=== PATIENT | male | born 1970 | race Caucasian/White ===

== ENCOUNTER 2016-12-14 19:37 | Emergency (ER) | payer MEDICAID ==
--- NOTE | 2016-12-14 19:50 | EDM.PDOC ---
ED HPI GENERAL MEDICAL PROBLEM - General Chief Complaint: General Stated Complaint: nasal swelling; nasal pain Time Seen by Provider: 12/14/16 19:39 Source of Information: Reports: Patient, Family, RN, RN Notes Reviewed History Limitations: Reports: No Limitations - History of Present Illness INITIAL COMMENTS - FREE TEXT/NARRATIVE: Patient presents the emergency room at [facility] on the advice of the one call nurse from [facility] in [place]. According to the patient's , the patient underwent a cyst excision last . The patient states that he has noticed over the past day or so increased swelling around the incision site. The patient states the swelling is very tender to palpation. The patient complains of a headache. The patient states he's had some nasal drainage. He is not sure what the nasal drainage looks like. The patient's states that the cyst extended up into the left nasal cavity and into the sinus area, and extending up into the ethmoid sinuses. [facility], the patient had a 1 cm incision placed along the left lateral nasal fold. The cyst was excised without any complication. The patient had sutures placed and was discharged home the same day. The patient was not discharged home on any antibiotics. The patient denies any fevers or chills. The patient denies any visual field disturbances. Further review of the surgeon's notes and H&P the cyst appeared to be localized to the left lateral nasal fold only without any migration of the cyst. Frontal Headache Pain Score (Numeric/FACES): 8 - Related Data Allergies Allergy/AdvReac Type Severity Reaction Status Date / Time Bleach (Sodium Hypochlorite) Allergy Rash Verified 12/14/16 19:56 codeine Allergy Headache Verified 12/14/16 19:56 Penicillins Allergy Rash Verified 03/03/15 09:35 Home Meds: Home Meds Cyclobenzaprine [Flexeril] 10 mg PO TID PRN 07/10/14 [History] Venlafaxine HCl [Venlafaxine ER] 150 mg PO DAILY 07/10/14 [History] Acetaminophen [Tylenol Extra Strength] 1,000 mg Q6H PRN 12/14/16 [History] Clindamycin HCl 1 tab PO TID 10 Days #30 capsule 12/14/16 [Rx] Gabapentin [Neurontin] 600 mg TID 12/14/16 [History] SUMAtriptan [Imitrex] 25 mg ASDIRECTED PRN 12/14/16 [History] methylPREDNISolone [Medrol] 4 mg PO ASDIRECTED #1 dosepk 12/14/16 [Rx] traZODone HCl [Trazodone HCl] 100 mg BEDTIME 12/14/16 [History] Past Medical History - Past Surgical History Other Musculoskeletal Surgeries/Procedures:: wrist surgery Social & Family History - Tobacco Use Smoking Status *Q: Current Every Day Smoker Years of Tobacco use: 31 Packs/Tins Daily: 0.5 Used Tobacco, but Quit: No - Alcohol Use Days Per Week of Alcohol Use: 0 - Recreational Drug Use Recreational Drug Use: No ED ROS GENERAL - Review of Systems Review Of Systems: See Below Constitutional: Denies: Fever, Chills HEENT: Reports: Nose Pain, Rhinitis, Sinus Problem Respiratory: Denies: Shortness of Breath, Cough Cardiovascular: Denies: Chest Pain, Palpitations Skin: Reports: No Symptoms Neurological: Reports: Headache. Denies: Dizziness, Numbness, Tingling ED EXAM, GENERAL - Physical Exam Exam: See Below Free Text/Narrative:: Records from [facility] reviewed per [employer]. See scanned document of procedure note from Dr Rosendo Corey. Exam Limited By: No Limitations General Appearance: Alert, No Apparent Distress Eye Exam: Bilateral Eye: Normal Inspection, PERRL Nose: Nasal Tenderness, Nasal Swelling, Other (Left lateral nasal fold s/p cyst excision; erythema present; tender to palpation at the incision site; incision site swollen; sutures intact). No: Nasal Deformity, Nasal Flaring Throat/Mouth: Normal Inspection, Normal Oropharynx, No Airway Compromise Neck: No: Lymphadenopathy (L), Lymphadenopathy (R) Respiratory/Chest: No Respiratory Distress, Lungs Clear, Normal Breath Sounds Cardiovascular: Regular Rate, Rhythm Neurological: Alert, Oriented Skin Exam: Warm, Dry, Intact, Normal Color, No Rash Course - Vital Signs Last Recorded V/S: Last Vital Signs Temp 36.5 C 12/14/16 19:45 Pulse 82 12/14/16 19:45 Resp 16 12/14/16 19:45 BP 133/79 12/14/16 19:45 Pulse Ox - Orders/Labs/Meds Orders: Active Orders 24 hr Category Date Time Status Max Facial Sinus wo Cont [CT] Stat Exams 12/14/16 20:00 Taken Sodium Chloride 0.9% [Saline Flush] Med 12/14/16 20:02 Active 10 ml FLUSH ASDIRECTED PRN Peripheral IV Insertion Adult [OM.PC] Routine Oth 12/14/16 20:02 Ordered Medication Orders Sodium Chloride (Saline Flush) 10 ml FLUSH ASDIRECTED PRN PRN Reason: Keep Vein Open Labs: Laboratory Tests 12/14/16 12/14/16 Range/Units 20:25 20:25 WBC 6.3 (4.0-10.0) x10^3/uL RBC 4.55 (4.5-6.0) x10^6/uL Hgb 13.6 L (14.0-18.0) g/dL Hct 38.8 L (40.0-52.0) % MCV 85.3 (78.0-93.0) fL MCH 29.9 (26.0-32.0) pg MCHC 35.1 (32.0-36.0) g/dL RDW Coeff of Stephane 13.7 (10.0-15.0) % Plt Count 194 (130-400) x10^3/uL Neut % (Auto) 35.1 L (50.0-80.0) % Lymph % (Auto) 54.0 H (25.0-50.0) % [place] % (Auto) 10.5 (2.0-11.0) % Eos % (Auto) 0.2 (0.0-4.0) % Baso % (Auto) 0.2 (0.2-1.2) % Sodium 140 (136-145) mmol/L Potassium 3.8 (3.5-5.1) mmol/L Chloride 105 (98-107) mmol/L Carbon Dioxide 27 (21-32) mmol/L BUN 11 (7-18) mg/dL Creatinine 0.9 (0.70-1.30) mg/dL Est Cr Clr Drug Dosing 122.58 mL/min Estimated GFR (MDRD) > 60 Glucose 111 H (74-106) mg/dL Calcium 8.4 L (8.5-10.1) mg/dL Meds: Medications Generic Name Dose Route Start Last Admin Trade Name Freq PRN Reason Stop Dose Admin Sodium Chloride 10 ml 12/14/16 20:02 Saline Flush FLUSH ASDIRECTED PRN Keep Vein Open Discontinued Medications Generic Name Dose Route Start Last Admin Trade Name Valerie PRN Reason Stop Dose Admin Fentanyl 50 mcg 12/14/16 20:03 12/14/16 20:35 Sublimaze IVPUSH 12/14/16 20:04 50 mcg ONETIME ONE Administration Sodium Chloride 1,000 mls @ 999 mls/hr 12/14/16 20:03 12/14/16 20:38 Normal Saline IV 12/14/16 21:03 999 mls/hr ONETIME ONE Administration Clindamycin Phosphate 900 mg/ 106 mls @ 200 mls/hr 12/14/16 20:04 12/14/16 20 :39 Sodium Chloride IV 12/14/16 20:35 200 mls/hr ONETIME ONE Administration - Radiology Interpretation Free Text/Narrative:: Focal area of abnormal soft tissue density projecting over the left maxillary region at the base of the nasal bone. Correlate for site of cyst removal. Findings are superimposed on diffuse facial edema. In the appropriate clinical setting, findings can represent cellulitis. No evidence of an abscess or osteomyelitis. Mild changes of paranasal sinusitis See scanned report in EMR CT Results Date: 12/14/16 CT Results Time: 21:09 Departure - Departure Time of Disposition: 21:19 Disposition: Home, Self-Care 01 Condition: Good Clinical Impression: History of removal of cyst Cellulitis Qualifiers: Site of cellulitis: face Qualified Code(s): L03.211 - Cellulitis of face - Discharge Information Prescriptions: Clindamycin HCl 1 tab PO TID 10 Days #30 capsule methylPREDNISolone [Medrol] 4 mg PO ASDIRECTED #1 dosepk Instructions: Cellulitis, Adult Referrals: Gaviota Bell [employer] [Primary Care Provider] - Forms: ED Department Discharge Additional Instructions: 1. Stay well hydrated and rest 2. May alternate Tylenol/Advil as needed 3. Take medications for the full coarse, even if you are feeling better 4. If stronger pain medications are needed, see your Primary 5. May use heat/ice to nasal fold to help with swelling 6. Call with any questions 7. See your Primary this week for a follow up ED Communication - ED Communication Date/Time Date: 12/14/16 Time Called: 21:18 - Discussed Case With (1) Discussed Case With (1): Radiologist (Dr. Rosendo Tinajero, Radiologist) - Conversation Summary Radiology Reading Discussed with Radiologist: Yes Summary Comment: No abscess or fluid collection seen on CT scan. Area consistent with cellulitis. - Problem List Review Problem List Initiated/Reviewed/Updated: Yes - My Orders Last 24 Hours: My Active Orders 12/14/16 20:00 Max Facial Sinus wo Cont [CT] Stat 12/14/16 20:02 Sodium Chloride 0.9% [Saline Flush] 10 ml FLUSH ASDIRECTED PRN Peripheral IV Insertion Adult [OM.PC] Routine - Assessment/Plan Last 24 Hours: My Active Orders 12/14/16 20:00 Max Facial Sinus wo Cont [CT] Stat 12/14/16 20:02 Sodium Chloride 0.9% [Saline Flush] 10 ml FLUSH ASDIRECTED PRN Peripheral IV Insertion Adult [OM.PC] Routine
[2016-12-14] MEDS ORDERED: Sodium Chloride 0.9% 10 ML Syringe FLUSH PRN (20:02)
[2016-12-14] MEDS ORDERED: fentaNYL 100 MCG/2 ML SDV IVPUSH ONE (20:03)
[2016-12-14] MEDS ORDERED: Sodium Chloride 0.9% 1,000 ML IV ONE (20:03)
[2016-12-14] MEDS ORDERED: Clindamycin Phosphate 900 MG in Sodium Chloride 0.9% 100 ML IV ONE (20:04)
[2016-12-14 20:11] VITALS: BP 133/79
[2016-12-14 20:43] LABS: CHLORIDE,CL 105 mmol/L (98-107); SODIUM,NA 140 mmol/L (136-145)
[2016-12-14] MEDS ORDERED: methylPREDNISolone Sodium Succinate 125 MG/2 ML SDV IVPUSH ONE (21:19)
== END 2016-12-14 21:40 | disposition home or self-care (01) ==
LOC: VM.ED 19:37
DX: L03.211 Cellulitis of face (principal); F17.210 Nicotine dependence, cigarettes, uncomplicated; Z88.0 Allergy status to penicillin; Z88.5 Allergy status to narcotic agent; Z88.8 Allergy status to other drugs, medicaments and biological substances; Z79.899 Other long term (current) drug therapy
CPT/HCPCS: 70486; 80048; 85025; 96365; 96375; 99284; J2930; J3010; J7030; J7050; S0077

== ENCOUNTER 2022-11-29 13:43 | Emergency (ER) | payer OTHER, MEDICAID ==
[2022-11-29] MEDS ORDERED: Ketorolac 30 MG/ML SDV IM ONE (14:04)
== END 2022-11-29 14:20 | disposition home or self-care (01) ==
LOC: VM.ED 13:43
DX: M54.50 Low back pain, unspecified (principal); Z91.048 Other nonmedicinal substance allergy status; Z88.5 Allergy status to narcotic agent; Z88.0 Allergy status to penicillin; Z88.8 Allergy status to other drugs, medicaments and biological substances; Z79.899 Other long term (current) drug therapy; W10.9XXA Fall (on) (from) unspecified stairs and steps, initial encounter
CPT/HCPCS: 96372; 99283; 99284; J1885